=== PATIENT | female | born 1995 | race Caucasian/White ===

== ENCOUNTER 2022-01-06 01:24 | Emergency (ER) | payer OTHER ==
[~2022-01-06] VITALS: Ht 162.6 cm; Wt 76.2 kg
[2022-01-06 01:36] VITALS: BP 120/77
--- NOTE | 2022-01-06 02:42 | NUR ---
PT AMBULATED TO BED #5
[2022-01-06 02:47] LABS: BASOPHILS % (AUTO) 0.6 % (0.0-2.0); EOSINOPHILS # (AUTO) 0.2 K/uL (0-0.4); EOSINOPHILS % (AUTO) 2.4 % (0.0-4.0); HEMATOCRIT 34.4 % (36-48); HEMOGLOBIN 11.3 g/dL (12.0-16.0); LYMPHOCYTES # (AUTO) 3.5 K/uL (2.5-16.5); LYMPHOCYTES % (AUTO) 44.8 % (20.5-51.1); MEAN CORPUSCULAR HEMOGLOBIN 25 pg (27-31); MEAN CORPUSCULAR HGB CONC 33 g/dL (33-37); MEAN CORPUSCULAR VOLUME 76.4 fL (80-94); MONOCYTES # (AUTO) 0.6 K/uL (0.8-1.0); MONOCYTES % (AUTO) 8.1 % (1.7-9.3); NEUTROPHILS # (AUTO) 3.4 K/uL (1.8-7.7); NEUTROPHILS % (AUTO) 44.1 % (42.2-75.2); PLATELET COUNT (AUTO) 344 K/uL (140-450); RED CELL DISTRIBUTION WIDTH 15.1 % (11.6-13.7); WHITE BLOOD COUNT (AUTO) 7.8 K/uL (4.8-10.8)
--- NOTE | 2022-01-06 03:00 | NUR ---
26 Y/O FEMALE BIB SELF, C/O ALL OVER BODY TINGLING X2 WEEKS. PATIENT PRESENTS TO ED WITH HAND AND FACE NUMBNESS FOR MONTHS BUT ONLY IN THE PAST 2 WEEKS HAS THE NUMBNESS GOTTEN WORSE; STATES SHE GETS DIZZY AND HAS VISION CHANGES; PT ADMITS TO HAVING HIGH ANXIETY, AND HAS ABDOMINAL PAIN AND BLOATING WHEN SHE EATS SO SHE HAS BEEN LIMITING HER FOOD INTAKE. DENIES N/V/D; SKIN IS PINK/WARM/DRY; AAOX4 WITH EVEN AND STEADY GAIT; LUNGS CLEAR BL; HR EVEN AND REGULAR; PT DENIES ANY FEVER, CP, SOB, OR COUGH AT THIS TIME; PATIENT STATES PAIN OF 0/10 AT THIS TIME; VSS; PATIENT POSITIONED FOR COMFORT; HOB ELEVATED; BEDRAILS UP X2; BED DOWN. ER MD MADE AWARE OF PT STATUS. HX: DEON CORONADO DENIES MEDS, RECENTLY QUIT [facility] 1 MONTH AGO
--- NOTE | 2022-01-06 03:09 | NUR ---
XRAY AT BEDSIDE
[2022-01-06 03:15] LABS: ALBUMIN 3.7 g/dL (3.4-5.0); ANION GAP 13.5 (8-16); CARBON DIOXIDE 23.7 mmol/L (21-32); CREATININE 0.5 mg/dL (0.6-1.3); PHOSPHORUS 2.8 mg/dL (2.5-4.9); POTASSIUM 3.2 mmol/L (3.5-5.1); THYROID STIMULATING HORMONE 2.8 uIU/mL (0.34-3.74); TOTAL BILIRUBIN 0.2 mg/dL (0.0-1.0)
[2022-01-06] MEDS ORDERED: POTASSIUM CHLORIDE 10 MEQ TABER PO ONE (03:50)
[2022-01-06 04:34] VITALS: BP 120/77
--- NOTE | 2022-01-06 04:35 | NUR ---
Patient discharged with v/s stable. Written and verbal after care instructions given and explained. Patient verbalized understanding. Ambulatory with steady gait. All questions addressed prior to discharge. Advised to follow up with PMD. VSS, A/OX4, AMBULATORY, UNLABORED BREATHING, AND CALM DEMEANOR.
== END 2022-01-06 04:33 | disposition home or self-care (01) ==
LOC: MED 01:24
DX: R20.0 Anesthesia of skin (principal); R20.2 Paresthesia of skin; E87.6 Hypokalemia; F12.90 Cannabis use, unspecified, uncomplicated
CPT/HCPCS: 36415; 71045; 80053; 83735; 84100; 84443; 84484; 85025; 93005; 99285; Q0092

== ENCOUNTER 2024-01-03 19:07 | Emergency (ER) | payer OTHER ==
[~2024-01-03] VITALS: Ht 160 cm; Wt 61.2 kg
[2024-01-03 19:32] VITALS: BP 120/93; PULSE 93; RESP 20; TEMP 99.2; O2SAT 95
[2024-01-03] MEDS: DEXT 5% /NACL 0.9% 1,000 ML IV ONE (20:18)
[2024-01-03 20:25] LABS: BILIRUBIN,URINE 1+ (NEGATIVE); BLOOD, URINE NEGATIVE (NEGATIVE); LEUKOCYTE ESTERASE ,URINE TRACE (NEGATIVE); NITRITE, URINE NEGATIVE (NEGATIVE); PROTEIN,URINE 1+ (NEGATIVE); UGLUCOSE NEGATIVE (NEGATIVE); UROBILINOGEN,URINE 0.2 EU/dL (0.2 - 1)
[2024-01-03 20:26] LABS: APPEARANCE,URINE HAZY (CLEAR); COLOR,URINE YELLOW (YELLOW)
[2024-01-03] MEDS: ONDANSETRON 4 MG/2 ML VIAL IVP ONE (20:30)
[2024-01-03 20:35] LABS: BACTERIA,URINE 10-30 (MOD) /HPF (None Seen); ICTOTEST NEGATIVE (NEGATIVE); MUCUS,URINE 1+ /LPF (None Seen); RBC,URINE 0-5 /HPF (0-5); SQUAMOUS EPITHELIAL CELL,UR 4-10 (MOD) /LPF (0-3 (FEW))
[2024-01-03 21:12] LABS: BASOPHILS # (AUTO) 0.1 K/uL (0.00-0.22); BASOPHILS % (AUTO) 0.7 % (0.0-2.0); EOSINOPHILS # (AUTO) 0.2 K/uL (0-0.4); EOSINOPHILS % (AUTO) 1.5 % (0.0-4.0); HEMATOCRIT 33.4 % (36-48); HEMOGLOBIN 11.5 g/dL (12.0-16.0); MEAN CORPUSCULAR HEMOGLOBIN 28 pg (27-31); MEAN CORPUSCULAR HGB CONC 35 g/dL (33-37); MEAN CORPUSCULAR VOLUME 81.1 fL (80-94); MONOCYTES # (AUTO) 0.9 K/uL (0.8-1.0); NEUTROPHILS # (AUTO) 7.8 K/uL (1.8-7.7); NEUTROPHILS % (AUTO) 71.8 % (42.2-75.2); PLATELET COUNT (AUTO) 326 K/uL (140-450); RED BLOOD CELL COUNT(AUTO) 4.11 MIL/uL (4.20-5.40); RED CELL DISTRIBUTION WIDTH 15.3 % (11.6-13.7); WHITE BLOOD COUNT (AUTO) 10.9 K/uL (4.8-10.8)
[2024-01-03 21:27] LABS: ANION GAP 13.5 (8-16); CALCIUM 8.4 mg/dL (8.5-10.1); CARBON DIOXIDE 20.5 mmol/L (21-32); CREATININE 0.6 mg/dL (0.6-1.3)
[2024-01-03 21:32] LABS: ALBUMIN 3.3 g/dL (3.4-5.0); BILIRUBIN,DIRECT 0.1 mg/dL (0.0-0.3); MAGNESIUM 1.6 mg/dL (1.8-2.4); PHOSPHORUS 3.1 mg/dL (2.5-4.9); TOTAL BILIRUBIN 0.8 mg/dL (0.0-1.0); TOTAL PROTEIN, SERUM 7.5 g/dL (6.4-8.2)
[2024-01-03] MEDS ORDERED: CEPH250C16 PO (21:34)
[2024-01-03] MEDS ORDERED: SUCR1SUS7 PO (21:34)
[2024-01-03] MEDS: POTASSIUM CHLORIDE 10 MEQ TABER PO ONE (21:46)
[2024-01-03] MEDS ORDERED: DOXY1TCP PO (21:53)
[2024-01-03] MEDS: FAMOTIDINE 20 MG TAB PO ONE (23:01)
[2024-01-03] MEDS: ACETAMINOPHEN EXTRA STRENGTH 500 MG TAB PO ONE (23:02)
== END 2024-01-03 22:50 | disposition home or self-care (01) ==
LOC: MED 19:07
DX: O99.611 Diseases of the digestive system complicating pregnancy, first trimester (principal); K29.70 Gastritis, unspecified, without bleeding; O23.41 Unspecified infection of urinary tract in pregnancy, first trimester; O99.281 Endocrine, nutritional and metabolic diseases complicating pregnancy, first trimester; E87.6 Hypokalemia; E83.42 Hypomagnesemia; Z3A.01 Less than 8 weeks gestation of pregnancy; Z79.899 Other long term (current) drug therapy
CPT/HCPCS: 36415; 76801; 80048; 80076; 81001; 81025; 83690; 83735; 84100; 84702; 85025; 86900; 86901; 87086; 96361; 96374; 99285; J2405; Q0092; 99284